=== PATIENT | male | born 1955 | race Two or more races ===

== ENCOUNTER → 2017-05-11 | Outpatient (CLI) | payer BC ==
[2017-05-11 18:59] LABS: Basophils # (A) 0.1 k/uL (0-0.2); Basophils % (A) 1 %; Eosinophils # (A) 0.2 k/uL (0-0.7); Eosinophils % (A) 3 %; HGB 14.2 gm/dL (13.0-17.5); Lymphocytes % (A) 30 %; MCH 31.6 pg (25.0-35.0); MCHC 33.1 g/dL (31.0-37.0); MCV 95.6 fL (80.0-100.0); Mean Platelet Volume 7.4; Monocytes # (A) 0.4 k/uL (0-1.0); Monocytes % (A) 7 %; Neutrophils # (A) 3.9 k/uL (1.3-7.7); Neutrophils % (A) 58 %; Platelet Count 318 k/uL (150-450); RDW 13.1 % (11.5-15.5); WBC 6.7 k/uL (3.8-10.6)
[2017-05-11 19:09] LABS: ALT 43 U/L (21-72); AST 33 U/L (17-59); Albumin 4.2 g/dL (3.5-5.0); Alkaline Phosphatase 79 U/L (38-126); Anion Gap 9 mmol/L; Blood Urea Nitrogen 17 mg/dL (9-20); Calcium 9.5 mg/dL (8.4-10.2); Carbon Dioxide 28 mmol/L (22-30); Chloride 105 mmol/L (98-107); Cholesterol 194 mg/dL (<200); Glucose 104 mg/dL (74-99); HDL Cholesterol 54 mg/dL (40-60); LDL Cholesterol,Calculated 94 mg/dL (0-99); Potassium 4.2 mmol/L (3.5-5.1); Sodium 142 mmol/L (137-145); Total Bilirubin 0.7 mg/dL (0.2-1.3); Total Protein 7.4 g/dL (6.3-8.2); Triglycerides 231 mg/dL (<150)
[2017-05-11 19:23] LABS: T4, Free (Free Thyroxine) 0.97 ng/dL (0.78-2.19)
[2017-05-11 19:37] LABS: PSA Annual Screen 0.55 ng/mL (0.00-4.00)
== END | disposition home or self-care (01) ==
LOC: MMGSC 15:39
PROVIDERS: ATTEND Family Medicine
DX: N52.9 Male erectile dysfunction, unspecified (principal); I10 Essential (primary) hypertension; Z12.5 Encounter for screening for malignant neoplasm of prostate
CPT/HCPCS: 84439; 80053; 80061; 84443; 85025; 36415; G0103

== ENCOUNTER → 2019-04-24 | Outpatient (CLI) | payer BC ==
--- NOTE | 2019-05-03 12:23 | P.ARTDOP ---
Arterial Doppler LOWER EXTREMITY ARTERIAL DOPPLER: DATE OF SERVICE: 04/24/2019 Reason for study: Bilateral leg pain. Doppler waveforms: Multiphasic bilaterally throughout. Pulse volume recording: []. Pressure gradients: None. Ankle-brachial indices: Greater than 1 bilaterally. Toe pressures: [] on the right, [] on the left Impression: Normal arterial Doppler.
== END | disposition home or self-care (01) ==
LOC: RADUSWWP 12:56
PROVIDERS: ATTEND Family Medicine
DX: R20.2 Paresthesia of skin (principal)
CPT/HCPCS: 93922

== ENCOUNTER → 2019-06-07 | Outpatient (CLI) | payer BC ==
--- NOTE | 2019-06-07 22:37 | MR ---
EXAMINATION TYPE: MR knee RT wo con DATE OF EXAM: 06/07/2019 COMPARISON: Outside x-ray 05/05/2019 HISTORY: Right knee pain TECHNIQUE: Multiplanar, multisequence imaging of the right knee is performed without IV contrast. FINDINGS: There is increased signal and thickening involving the insertion of the quadriceps tendon compatible with severe tendinopathy and partial tear. No retraction. Patellar tendon intact.. Small amount of subcutaneous edema anteriorly. There is a trace amount of fluid in the suprapatellar bursa. There is thinning and grade II chondromalacia of the lateral patellar cartilage. Retinaculum i ntact. There is grade 3 signal involving the posterior horn and body of the medial meniscus compatible with a medial meniscal tear. There is a septated 3.4 cm para meniscal cyst. Lateral meniscus intact. Medial collateral and lateral collateral ligaments are intact. Anterior cruciate and posterior crucia te ligaments intact. No sizable Becerra's cyst. No evidence of acute fracture or osteonecrosis. Vascular calcifications are seen. There is prominence the anterior tibial tubercle. IMPRESSION: 1. Complex tear posterior horn and body medial meniscus with adjacent 3.4 cm para meniscal cyst. 2. Thickening and increased signal at the insertion of the quadriceps tendon compatible severe tendin opathy and partial tear. No retraction.
== END | disposition home or self-care (01) ==
LOC: RADMRIMAIN 05:40
PROVIDERS: ATTEND Orthopaedic Surgery
DX: S83.231A Complex tear of medial meniscus, current injury, right knee, initial encounter (principal)

== ENCOUNTER → 2019-06-14 | Outpatient (CLI) | payer BC ==
[2019-06-14 10:08] LABS: Potassium 4.4 mmol/L (3.5-5.1)
[2019-06-14 10:27] LABS: Basophils # (A) 0.1 k/uL (0-0.2); Basophils % (A) 1 %; Eosinophils # (A) 0.2 k/uL (0-0.7); Eosinophils % (A) 3 %; HCT 41.6 % (39.0-53.0); HGB 14.1 gm/dL (13.0-17.5); Lymphocytes # (A) 2.8 k/uL (1.0-4.8); Lymphocytes % (A) 35 %; MCH 31.5 pg (25.0-35.0); MCHC 33.8 g/dL (31.0-37.0); MCV 93.4 fL (80.0-100.0); Mean Platelet Volume 7.3; Monocytes # (A) 0.6 k/uL (0-1.0); Monocytes % (A) 8 %; Neutrophils # (A) 4.1 k/uL (1.3-7.7); Neutrophils % (A) 51 %; Platelet Count 290 k/uL (150-450); RBC 4.46 m/uL (4.30-5.90)
== END | disposition home or self-care (01) ==
LOC: LABPAT 08:54
PROVIDERS: ATTEND Orthopaedic Surgery
DX: Z01.818 Encounter for other preprocedural examination (principal); Z01.812 Encounter for preprocedural laboratory examination; M23.91 Unspecified internal derangement of right knee
CPT/HCPCS: 36415; 80051; 85025; 93005

== ENCOUNTER 2019-06-23 08:28 | Day surgery (SDC) | payer BC ==
[2019-06-22 08:36] VITALS: BMI 30.8
--- NOTE | 2019-06-22 09:33 | HP ---
HISTORY AND PHYSICAL CHIEF COMPLAINT: Right knee pain. 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 He notes intermittent giving way along with medial pain that limits him daily. He also has night symptoms. He has been taking anti-inflammatories for this. PAST MEDICAL HISTORY: Significant for hypertension. PAST SURGICAL HISTORY: Negative. CURRENT MEDICATIONS: 1. Amlodipine. 2. Cialis. 3. Claritin. 4. Terazosin. ALLERGIES: He denies drug allergies. FAMILY HISTORY: Significant for cancer, rheumatoid arthritis. SOCIAL HISTORY: Significant for social and alcohol use and previous tobacco use. REVIEW OF SYSTEMS: Sixteen-point review of systems otherwise reviewed and noncontributory. PHYSICAL EXAMINATION: On examination, the patient is approximately 6 feet 2 inches, 224 pounds of mesomorphic habitus. HEENT exam is nonfocal. Neck is supple. He has painless passive motion of the right hip. Straight leg raise is negative. Active motion right knee -10 to 130 degrees of flexion. He is tender about the medial joint line. Collaterals are stable, Lucy is negative, Butch's elicits medial pain. His distal neurovascular exam appears intact in the right lower extremity. MRI report right knee 06/07/2019 shows a posterior medial meniscal tear along with a parameniscal cyst. IMPRESSION: 1. Internal derangement right knee with symptomatic medial meniscal tear. 2. Right knee mild medial compartment osteoarthrosis. RECOMMENDATIONS: I talked to the patient at length regarding his condition along with treatment options. At this point, he is having persistent pain and mechanical symptoms that limit him. After thorough discussion, he opts to proceed with surgery. We will plan to proceed with arthroscopic evaluation with probable partial medial meniscectomy. We will likely perform that as an outpatient procedure. Risks and benefits were discussed in length in layman's terms. MMODL / IJN: [id number] /
[~2019-06-23 08:28] MED LIST: DEXAMETHASONE SOD PHOSPHATE 10 MG/ML 1 ML VIAL IV ONE; LACTATED RINGERS 1,000 ML IV SCH; MIDAZOLAM 2 MG/2 ML VIAL IV PRN; ONDANSETRON 4 MG/2 ML VIAL IVP ONE; SCOPOLAMINE 1.5MG/72HR PATCH TRANSDERM ONE
[2019-06-23 08:56] VITALS: RESP 16
[2019-06-23] MEDS ORDERED: MIDAZOLAM 2 MG/2 ML VIAL ONE (09:51)
[2019-06-23] MEDS ORDERED: fentaNYL (PF) 50 MCG/ML 2 ML AMP ONE (09:51)
[2019-06-23] MEDS ORDERED: PROPOFOL 10 MG/ML 20 ML VIAL IV ONE (09:51)
[2019-06-23] MEDS ORDERED: HYDROmorphone (PF) 1 MG/ML ONE (09:51)
[2019-06-23] MEDS ORDERED: LIDOCAINE 1% INJ 10MG/ML (20 ML MDV) ONE (09:51)
[2019-06-23] MEDS ORDERED: EPINEPHrine (PF) 1 ML in SODIUM CHLORIDE 0.9% IRRIGATIO 3,000 ML IRRIGATION ONE ×4 (10:11)
--- NOTE | 2019-06-23 10:46 | P.OP ---
Date of Procedure: 06/23/19 Preoperative Diagnosis: Right knee internal derangement Postoperative Diagnosis: Right knee posterior medial meniscal tear Procedure(s) Performed: Right knee arthroscopic partial medial meniscectomy Anesthesia: TORITOA Surgeon: Chuy Casiano Estimated Blood Loss (ml): 10 Pathology: none sent Condition: stable Disposition: PACU Indications for Procedure: The patient's a 64-year-old male who presents with progressive right knee pain and mechanical symptoms despite conservative treatment. A discussion of the risks and benefits of operative intervention versus continued conservative measures was made with patient. He opted to proceed with surgery. Operative risks to include infection, neurovascular injury, development of blood clots, possible incomplete resolution of symptoms, possible worsening symptoms and need for subsequent procedures was discussed. Informed consent was obtained. Operative Findings: As below Description of Procedure: The patient was brought to the operating room, and after induction of general anesthesia examined the right knee. Collaterals were stable, Lucy was negative, and posterior drawer was negative. The right lower extremity was prepped and draped in a normal fashion. A lateral portal was made through a 5 mm vertical skin incision lateral to the patella tendon above the joint line. Diagnostic arthroscopy was performed. On inspection of the medial compartment, a complex tear involving the posterior horn medial meniscus in the white-red junction was noted. This was debrided back to stable base with straight baskets and a motorized shaver. Grade 2 chondral changes were noted diffusely in the medial compartment. On inspection of the notch, the anterior cruciate ligament appeared to be intact. On inspection of the lateral compartment, no significant meniscal or cartilage pathology was noted.. On inspection of the patellofemoral articulation there was chondral fibrillation and grade 2 changes however no loose chondral fragments. The gutters were clear debris. The knee was then thoroughly irrigated. The portals were closed with Steri-Strips. A sterile dressing was applied in addition to a compression stocking. The patient was awoken from general anesthesia and transferred to recovery room in good condition. Blood loss was estimated at 10 mL. No complications were incurred.
[2019-06-23 10:50] VITALS: TEMP 97
[2019-06-23] MEDS: HYDROmorphone 0.5 MG/0.5 ML SYRINGE IVP PRN ×2 (11:08→11:14)
[2019-06-23] MEDS ORDERED: KETOROLAC 30 MG/ML 1 ML VIAL IVP ONE (11:10)
[2019-06-23 11:48] VITALS: BP 152/96; PULSE 71
== END 2019-06-23 12:24 | disposition home or self-care (01) ==
LOC: OR 08:28
PROVIDERS: ATTEND Orthopaedic Surgery
DX: M23.221 Derangement of posterior horn of medial meniscus due to old tear or injury, right knee (principal); M23.91 Unspecified internal derangement of right knee; M17.11 Unilateral primary osteoarthritis, right knee; I10 Essential (primary) hypertension; K21.9 Gastro-esophageal reflux disease without esophagitis; Z79.899 Other long term (current) drug therapy; Z82.61 Family history of arthritis; Z87.891 Personal history of nicotine dependence
CPT/HCPCS: 29881; J2250; J1100; J0690; J2405; J0171; J2001; J3010; J1885; J1170 ×2; J2704